=== PATIENT | male | born 1975 | race Native Hawaiian/Other Pacific Islander ===

== ENCOUNTER 2016-09-04 10:17 | Emergency (ER) | payer OTHER ==
[~2016-09-04] VITALS: Ht 175.3 cm; Wt 87.1 kg
[2016-09-04 10:17] VITALS: BP 152/88
[2016-09-04] MEDS ORDERED: IBUP80TA PO (10:25)
[2016-09-04] MEDS ORDERED: KEFL500C7 PO (10:53)
== END 2016-09-04 11:01 | disposition home or self-care (01) ==
LOC: M ED 10:52
DX: K11.20 Sialoadenitis, unspecified (principal)